=== PATIENT | male | born 1975 | race Caucasian/White ===

== ENCOUNTER 2023-10-16 11:40 | Emergency (ER) | payer MEDICARE, OTHER, SELFPAY ==
[2023-10-16 11:57] VITALS: BP 168/121
--- NOTE | 2023-10-16 12:53 | ED.GENMED ---
History of Present Illness
General
Chief Complaint: Crisis Evaluation
Source: patient
Exam Limitations: none
Time Seen by Provider: 10/16/23 11:59
Nursing documentation reviewed up to this point in time: agreed with
Travel History
Have you had any contact with someone who has COVID-19?: No
Do you have any symptoms of coronavirus? Fever > 100 degrees, chills, cough, shortness of breath, sore throat, loss of taste or smell, muscle aches, or headache?: No
History of Present Illness
History of Present Illness:
Patient with history of congestive heart failure and bipolar disorder, presents to ED for medical evaluation after 302 petition was filed by psychiatric staff. Patient states that he has not been taking his medications because '[place] has told
himself'. Denies any other complaints. Denies chest pain. Denies shortness of breath. Denies palpitations. Denies fever or chills. Denies recent illness. Denies loss of appetite, but states that he does not have enough food at home. Denies
any suicidal or homicidal ideation at this time.
Past History
Past History
ED Past Medical History: CHF, HTN, Psychiatric (OCD severe, PRSD, Anxiety, Depression, Paranoid) and Other (Recurrent right pleural effusions)
ED Past Surgical History: Tonsilectomy and Other (Thoracentesis)
Social History
Tobacco: Smoker
Alcohol: Occasional
Drug: None
Personal: Single
Living: with family
Employment: Not employed
Family History
Family History: Diabetes
Review of Systems
Review of Systems
Allergies reviewed?: Yes
All Other Systems: ROS reviewed and negative except as documented in HPI and ROS
Constitutional: Reports no symptoms
EENT: Reports no symptoms
Respiratory: Reports no symptoms
Cardiac: Reports no symptoms
ABD/GI: Reports no symptoms
Musculoskeletal: Reports no symptoms
Skin: Reports no symptoms
Neurological: Reports no symptoms
Psychiatric: Denies depression or suicidal
Phy Exam
Physical Exam
Physical Exam:
Physical Exam
General: no apparent distress, not acutely ill. afebrile
Head: nc/at. eomi
Neck: supple. normal range of motion.
Neuro: alert and oriented. no focal neurological deficits
Skin: no rash
Psychiatric: interactive and cooperative
Extremities: no edema. no calf tenderness.
Course
Orders/Labs/Results
Orders:
Orders
10/16/23 12:00
PSYCHIATRY CONSULT Urgent
Consulting Provider: Sarai Maurice
Was physician already notified: Yes
Reason for consult: behavioral change
Crisis Consult Urgent
Reason for Consult: medication noncompliance
10/16/23 13:53
Lorazepam [Ativan] 1 mg PO Q4HPRN PRN
10/16/23 14:02
Electrocardiogram (*1) Urgent
Reason for Study: QTc Monitoring
10/16/23 14:03
EKG- Treatment ONCE
10/16/23 14:19
Alcohol Urgent
Complete Blood Count/No Diff Urgent
Comprehensive Metabolic Panel Urgent
10/16/23 16:05
Urine Drug Abuse Screen Urgent
Date Specimen was Collected: 10/16/23
Time Specimen was Collected: 16:00
10/16/23 17:54
Haloperidol Lactate [Haldol] 5 mg .ROUTE .STK-MED ONE
Lorazepam [Ativan] 2 mg .ROUTE .STK-MED ONE
10/16/23 18:02
1:1 Observation - Suicide/ Violent Behavior As Directed
Restraints - Violent As Directed
Restraint Type-: Locked-4 point/4 rails
Apply From (date): 10/16/23
Apply from (time): 18:02
Remove (date): 10/16/23
Remove (time): 22:02
10/16/23 18:06
Haloperidol Lactate [Haldol] 5 mg IM NOW STA
Lorazepam [Ativan] 2 mg IM NOW STA
10/16/23 19:10
COVID-19 Antigen Urgent
Source: Nasal Swab
10/17/23 10:30
Empagliflozin [Jardiance] 10 mg PO DAILY
10/17/23 11:00
Aspirin Chewable [Low Strength Aspirin] 81 mg PO DAILY
Carvedilol [Coreg] 25 mg PO BID
Furosemide [Lasix] 40 mg PO DAILY
10/17/23 13:18
Haloperidol Lactate [Haldol] 2 mg IM NOW STA
Lorazepam [Ativan] 1 mg IM NOW STA
Abnormal Lab Results
10/16/23
14:19
RBC 4.67 L 10^6/uL
(4.70-6.10)
MCH 31.7 H pg
(27.0-31.0)
BUN 7 L mg/dl
(9-20)
Creatinine 0.6 L mg/dL
(0.7-1.3)
Glucose 118 H mg/dl
(70-99)
10/16/23 14:19
10/16/23 14:19
Vital Signs
Initial and Last Documented VS:
Initial Vital Signs
Temp Pulse Resp BP Pulse Ox
98.1 F 117 16 168/121 96
10/16/23 11:57 10/16/23 11:57 10/16/23 11:57 10/16/23 11:57 10/16/23 11:57
Last Documented Vital Signs
Temp Pulse Resp BP Pulse Ox
98.1 F 101 16 159/109 99
10/16/23 11:57 10/17/23 05:29 10/17/23 05:29 10/17/23 05:29 10/17/23 05:29
MDM/Problems Addressed
MDM/Problems Addressed:
Pt evaluated in ED by (psychiatry) - 302 upheld. PRN medication ordered put in by
Will check blood work/EKG
Pt medically cleared to be transitioned to in-patient psychiatric facility
*Critical Care Note
Total Time (30-74mins, 75-104mins- exclusive of procedures): Not Applicable
ED Attending Note
-
Portions of this chart may have been created with voice recognition software.� Occasional wrong word or��sound alike� substitutions may have occurred due to the inherent limitations of voice recognition software.
Discharge Plan
Departure
Patient Disposition: Psych Facility
Date of Disposition: 10/16/23
Time of Disposition: 14:04
Condition: Fair
Discharge Problem:
Bipolar disorder
Prescriptions:
No Action
aripiprazole 5 MG tablet
5 mg PO DAILY
aspirin 81 MG tablet,chewable
81 mg PO DAILY 0RF
potassium chloride 10 MEQ tablet,ER particles/crystals
10 meq PO DAILY Qty: 30 0RF
Jardiance 10 MG tablet
10 mg PO DAILY Qty: 30 0RF
clomipramine [Anafranil] 50 MG capsule
50 mg PO DAILY Qty: 0 0RF
metolazone 2.5 mg Tablet
2.5 mg PO QMWF
furosemide 40 MG tablet
80 mg PO BID AT 0800,1600
carvedilol 6.25 MG tablet
12.5 mg PO BID
lisinopril 2.5 MG tablet
5 mg PO DAILY
hydrochlorothiazide 25 mg Tablet
25 mg PO DAILY
albuterol sulfate 90 mcg/actuation Hfa Aerosol Inhaler
2 puff INHALATION Q4H PRN (Reason: SOB)
fluticasone propionate 50 mcg/actuation [place],Suspension
1 spray INTRANASAL DAILY
empagliflozin 10 mg Tablet
10 mg PO DAILY
Referrals:
UNKNOWN - PT NOT,INTERVIEWE [Family Provider] -
Interventions
Interventions:
*Risk Screen - Suicide Last Done: 10/16/23 20:44
*General Assessment Last Done: 10/16/23 11:56
*Neglect/Abuse Screening Last Done: 10/16/23 20:44
ED-Psychological Assessment Last Done: 10/16/23 12:01
Discharge Date and Time
Print Language: MONTSERRATIAN
--- NOTE | 2023-10-16 13:52 | CON.MD ---
Consultation - Medical
-
patient seen chart reviewed. patient is well known to me. he is a 48 year old male last seen by this telegraphic typewriter mechanic in jul. he has a hx of psychosis ocd anxiety and ptsd. he has been in the ACT program at [facility]. a 302 petition was filed by a
clinical admin in that program mr leodan roman who alleges patient is increasingly paranoid and delusional and has been refusing his psych and cardiac medications. he has been socially inc isolative. the patient denies that he needs to be here but
does not deny that his food is contaminated and he has been told by 'government' to stop taking his cardiac medications. he told me he 'recycles' his medications properly. the patient was not an eager historian and told me several times to leave.
the aforementioned is the only information i could glean from him. current psych meds aristada last dose not known 882 mg daily risperdal 4 mg bid hydroxyzine 50 mg qid prn clomipramine 100 mg q day
past psych hx patient has been 302 committed on several occasions in the past. the last i have recorded was in july of this year and at that time he was also increasingly psychotic and refusing medications requiring hospitalization. he has
been variously cooperative in rx with ACT at [facility]
medical hx patient w hx chf w reduced EF. hx htn hld pleural effusion overweight psiriasis/eczema. his communication clerk is dr karo johnson. there is some hx qtc in the past attributed to clomipramine which was reduced. current meds from the [facility]
pharmacy record as follows jardiance 10 mg q d lasix 40 mg q d asa 81 mg q day carvedilol 25 mg bid
fh mother w depression and etoh
substance abuse the record says etoh cardiomyopathy but the patient AND his father deny any hx etoh abuse
social lives in appt supproted by his dad unable to work given psych hx on disability
mse alert but patient very uncooperative see above. he would only tell me he is not taking meds bc government told him not to and that food is contaminated insight judgment poor. paranoid. affect constricted mood is irritable and hostile
dx schizoaffective d/o ocd
plan uphole 302. speak [address] dr roe re medical medications psych hosp when medically cleared. check ecg re qtc
[2023-10-16 14:34] LABS: Hematocrit 42.8 % (39.0-52.0); Hemoglobin 14.8 g/dL (13.0-18.0); Mean Corp Hgb Conc. 34.6 g/dL (33.0-37.0); Mean Corpuscular Hgb 31.7 pg (27.0-31.0); Mean Corpuscular Volume 91.6 fL (80.0-94.0); Mean Platelet Volume 9.8 fL (7.4-10.4); Platelet Count 155 10^3/uL (130-400); Red Blood Cell Count 4.67 10^6/uL (4.70-6.10); Red Cell Dist. Width 13.3 % (11.5-14.5)
[2023-10-16 14:50] LABS: ALT (SGPT) 18 U/L (0-50); AST (SGOT) 21 U/L (17-59); Albumin 3.9 g/dl (3.5-5.0); Alkaline Phosphatase 39 U/L (38-126); Blood Urea Nitrogen 7 mg/dl (9-20); Calcium 9.5 mg/dl (8.4-10.2); Carbon Dioxide 26 mmol/L (22-30); Chloride 106 mmol/L (98-107); Glucose 118 mg/dl (70-99); Sodium 136 mmol/L (135-145); Total Bilirubin 0.6 mg/dl (0.2-1.3); Total Protein 6.4 g/dl (6.3-8.2); eGFR > 60.00
[2023-10-16 14:51] LABS: Alcohol None Detected
[2023-10-16 16:36] LABS: Amphetamines Negative (Negative); Barbiturates Negative (Negative); Benzodiazepines Negative (Negative); Buprenorphine Negative (Negative); Cocaine Negative (Negative); Marijuana Negative (Negative); Methadone Negative (Negative); Methamphetamines Negative (Negative); Opiates Negative (Negative); Phencyclidine Negative (Negative); Tricyclic Antidepressants Negative (Negative)
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
[2023-10-16] MEDS: ATIVAN 2 MG IM (18:10)
[2023-10-16] MEDS: HALDOL 5 MG IM (18:11)
--- NOTE | 2023-10-16 18:12 | EDRN ---
IM Meds given emergently. Scanned after (see MAR).
[2023-10-17 05:29] VITALS: BP 159/109
--- NOTE | 2023-10-17 09:24 | ED.CRISIS ---
ED Crisis Note
ED Crisis Note
Subjective:
Patient brought in is a 302 evaluation for paranoid and delusional behavior that has progressed. Not taking his medications. History of psychosis OCD anxiety and PTSD. Patient denies acute medical complaints at this time.
Objective:
Nontoxic no distress. Sitting in a chair.
Assessment/Plan:
Medically stable. Labs are stable. Home meds were ordered. Discussed with psychiatry.
--- NOTE | 2023-10-17 10:40 | W.PN.UPDATE ---
Update Note
Progress Note Update
patient seen chart reviewed. noted patient struggled last evening and required a prn for agitation. he received haldol. he continues today to refuse to take even his cardiac meds. i explained to him that i was not prescribing at this moment
risperdal as he has already received aristada but i could not move him. he insisted he does not need psych meds. i did ask that he take his cardiac medications and he told me to leave. i had asked the dr roe to order his cardiac meds which are
listed in my note and i also gave him a printout but i did not see them ordered and spoke with dr ordonez. noted bps are high with diastolics yesteday recorded as high as 121. the meds have now been ordered to start now and alerted pharmacist
rogers castanon . noted ecg is read as normal. qtc is normal. will pursue t [address] pulido to address medical clearance which will be required by psych facility to accept him. patient said he ate turks and caicos islander toast and bassett this am.
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
[2023-10-17 12:20] LABS: COVID-19 Antigen Negative (Negative)
--- NOTE | 2023-10-17 13:19 | ED.CRISIS ---
ED Crisis Note
ED Crisis Note
Subjective:
Patient now has become more agitated. Despite multiple attempts to calm down by the staff he remains agitated hitting the door upset. Danger to self and others.
Objective:
Agitated swinging and hitting at the door. Yelling screaming
Assessment/Plan:
Requires further sedation for his safety and safety of staff. Discussed with psychiatry. Haldol 2 mg, Ativan 1 mg IM
[2023-10-17] MEDS: ATIVAN 1 MG IM (13:50)
[2023-10-17] MEDS: HALDOL 2 MG IM (13:50)
[2023-10-17 18:29] VITALS: BP 144/102
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
[2023-10-17] MEDS: ZYPREXA 10 MG IM (21:35)
[2023-10-17] MEDS: ATIVAN 2 MG IM (21:35)
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
--- NOTE | 2023-10-18 03:17 | EDRN ---
Pt. awake, sitting in chair in room. Pt. screaming out aggressively at security, stating 'I want out of this room now! the psychiatrist is wrong, I'm not supposed to be here! why don't you guys just do your job!'. RN attempting to redirect and calm
pt., explained he is awaiting 303 hearing, pt. uninterested in listening to RN. Pt. vocalized that he is agitated, RN offered PRN medication, but pt. refused. Security remains at bedside.
[2023-10-18] MEDS: SAPHRIS 5 MG SL (03:34)
[2023-10-18 08:32] VITALS: BP 172/101
--- NOTE | 2023-10-18 10:02 | W.PN.UPDATE ---
Update Note
Progress Note Update
patient was extremely agitated this am . there were multiple incidents for no apparent reason until time came for the hearing. he refused to talk to his commercial baker helper. attempted to throw the laptop. he was verbally abusive and physically threatening. he
was refusing to take medication and insisting to leave the hospital. he has received prns over the last two days at this point he is very paranoid and delusional. have ordered zyprexa 5 mg po bid with im for refusal. have been unable at this
point to find a psych bed for him. blood pressures are climbing as he refuses to take bp meds. need to try to get him more stable psychiatrically for medical reasons as well. have chosen zyprexa bc concern w parenteral haldol re qtc prolongation
risk which he has had in the past.
[2023-10-18] MEDS: ZYPREXA 5 MG IM ×2 (12:46→20:08)
--- NOTE | 2023-10-18 14:43 | ED.CRISIS ---
ED Crisis Note
ED Crisis Note
Subjective:
48-year-old male, bipolar awaiting psychiatric placement now acting aggressive.
Objective:
Agitated 48-year-old male banging on door, acting aggressive.
Assessment/Plan:
IM Ativan ordered, will continue to assess.
[2023-10-18] MEDS: ATIVAN 2 MG IV (14:53)
--- NOTE | 2023-10-18 20:19 | ED.CRISIS ---
ED Crisis Note
ED Crisis Note
Subjective:
Patient apparently has become more combative.
Objective:
Agitated combative. Danger to self and others
Assessment/Plan:
Warrants restraints
[2023-10-18 20:26] VITALS: BP 160/110
[2023-10-19] MEDS: ZYPREXA 5 MG IM ×2 (03:29→19:09)
[2023-10-19] MEDS: STERILE WATER FOR INJECTION 2.10000000000000009 ML IM (03:30)
[2023-10-19] MEDS: KETAMINE HCL 400 MG IM (04:29)
--- NOTE | 2023-10-19 04:56 | ED.CRISIS ---
ED Crisis Note
ED Crisis Note
Subjective:
48-year-old male here on involuntary commitment as documented extensively above. He is being followed by psychiatry. He is currently very agitated and delusional yelling and screaming at the top of his lungs and threatening. He refuses to go into
his room and is banging on the door to exit our psychiatric area. He is not responding to verbal redirection.
Objective:
Patient pacing about outside of his room yelling and screaming cursing at staff.
Assessment/Plan:
Patient acutely psychotic, agitated and threatening and his behavior is escalating. He was treated with a as needed dose of Zyprexa without any improvement. For this reason decision made to proceed with sedation with ketamine. After receiving IM
ketamine unfortunately patient fell out of bed and hit his head and nose on the floor. He had some epistaxis which stopped with some mild direct pressure. Will send for a CT head, cervical spine and facial bones.
[2023-10-19 05:04] VITALS: BP 174/101
[2023-10-19 06:10] VITALS: BMI 30.1
--- NOTE | 2023-10-19 06:12 | ED.CRISIS ---
ED Crisis Note
ED Crisis Note
Subjective:
Patient suffered a fall after sedation for acute psychosis and agitation, aggressive behavior. He was in CT head, cervical spine, facial bones.
Objective:
Patient resting comfortably. Some ecchymosis over the nose but no epistaxis at present. Dried blood around the nares. No septal hematoma.
Assessment/Plan:
Reviewed imaging: CT head and cervical spine negative. CT of the facial bones does acute anterior nasal bone and osseous nasal septal fractures. No acute intervention for now, will ultimately need outpatient ENT follow-up.
[2023-10-19 06:16] VITALS: BP 158/103
[2023-10-19 08:30] VITALS: BP 176/98
[2023-10-19] MEDS: HALDOL 5 MG IM (13:40)
[2023-10-19] MEDS: BENADRYL 25 MG IM (13:40)
--- NOTE | 2023-10-19 13:44 | W.PN.UPDATE ---
Update Note
Progress Note Update
Patient is very agitated, screaming 'Fk you ' and pacing, seems threatening. Also refusing frequently to take his medications so it is unclear if Zyprexa would help.
303 hearing to be held on Saturday, 10/20.
Continue current medications for now.
--- NOTE | 2023-10-20 10:17 | W.PN.UPDATE ---
Update Note
Progress Note Update
reviewed chart. Pt on 303 commitment.
Attempted to talk to patient today- he was lying in bed in the room. He refused to speak to me, denied being in any physical pain. Although he did not become abusive verbally or physically he demanded that I leave the room and refused to speak with
me.
Acc to medication records it appears he did get Zyprexa IM yesterday.
Waiting for transfer to psychiatric unit. Will continue to attempt to get patient to take antipsychotics, though his paranoia at this point is acute.
CT head revealed no abnormalities. Present condition results from his underlying psychotic disorder and noncompliance with treatment.
We will continue to follow patient.
[2023-10-20 13:34] VITALS: BP 167/107
[2023-10-20] MEDS: STERILE WATER FOR INJECTION 2.10000000000000009 ML IM ×2 (15:05→18:36)
[2023-10-20] MEDS: ZYPREXA 5 MG IM ×2 (15:06→18:36)
[2023-10-20] MEDS: ATIVAN 2 MG IM (18:36)
[2023-10-20 22:53] VITALS: BP 148/93
[2023-10-21 09:29] VITALS: BP 168/115
--- NOTE | 2023-10-21 11:39 | ED.CRISIS ---
ED Crisis Note
ED Crisis Note
Subjective:
Pt does not offer any info upon questioning
Objective:
Pt with intermittent verbal outbursts, but able to be re-directed.
Remains mildly hypertensive, but refusing medications.
Assessment/Plan:
Awaiting 303 hearing tomorrow, per crisis team.
--- NOTE | 2023-10-21 13:19 | W.PN.UPDATE ---
Update Note
Progress Note Update
Pt seen, reviewed /303 petition. 303 hearing continued until tomorrow due to pt uncooperative. Pt noted to be agitated, aggressive, threatening/screaming. Pt was given multiple medications- Zyprexa 5 mg IM BID, prn dose of Haldol, Saphris, and
ultimately Ketamine 400 mg IM on 10/18 at 4 am. Pt subsequently fell and injured his face, was medically cleared. Pt continues refusing to take all heart/ blood pressure/diabetes meds. Pt is followed by [facility], noted to be on
long-acting injection of Aristada (Aripiprazole) monthly, risperidone 4 mg BID, Clomipramine for OCD symptoms. Today, pt refusing to talk or answer any questions, insisting he is supposed to be released/discharged. Affect is dysphoric and
irritable, tense/edgy, preoccupied. Pt noted to be mildly hypertensive per ED physician.
Imp: Schizoaffective d/o, bipolar type, mixed episode. on 302 due to inability to care for self; 303 hearing tomorrow. Further agitation/aggression noted since admission in the ED; pt continues to refuse his medical medications
Rec: continue current antipsychotic/mood stabilizing med- IM Zyprexa for now; continue to offer po
303 hearing tomorrow, with petition for inpatient psych tx
Will follow
--- NOTE | 2023-10-22 08:47 | ED.CRISIS ---
ED Crisis Note
ED Crisis Note
Subjective:
48-year-old male here with acute psychosis, noncompliant with medications. 302/303 petition. He is pacing around continues to be screaming and threatening but currently redirectable.
Objective:
Patient around angry and aggressive but redirectable. Not in distress.
Assessment/Plan:
Patient here for psychosis, noncompliant with meds. He has IM medications ordered due to noncompliance with p.o. medications. Psychiatry following along. He is scheduled for 303 hearing around 11 AM today. Continue to monitor.
--- NOTE | 2023-10-22 13:39 | W.PN.UPDATE ---
Update Note
Progress Note Update
Pt seen, sitting on stretcher RIS, talking loudly to self, with bizarre paranoid content. 303 hearing held, pt's presence waived; pt committed to up to 20 days inpatient. Pt continues to refuse all po medications- psychiatric and medical. Pt
continues refusing to talk about his situation, insists he should be discharged. Pt very irritable, with undercurrent of anger, easily agitated.
Imp: Schizoaffective d/o, bipolar type, mixed episode, now on 303 for up to 20 days inpatient. Pt not improving; continues to refuse his medical medications
Rec: continue IM Zyprexa prn for now; continue to offer po
Referral to inpatient psych tx on 303
Will follow
[2023-10-22 19:45] VITALS: BP 151/107
[2023-10-22] MEDS: ZYPREXA 5 MG IM (21:05)
[2023-10-22] MEDS: ATIVAN 2 MG IM (21:10)
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
== END 2023-10-23 00:05 ==
LOC: EMR 11:40
PROVIDERS: CONSULT PHYSICIAN Psychiatry & Neurology Psychiatry; EMERGENCY PHYSICIAN Emergency Medicine
DX: F25.0 Schizoaffective disorder, bipolar type (principal); F17.200 Nicotine dependence, unspecified, uncomplicated; S02.2XXA Fracture of nasal bones, initial encounter for closed fracture; W06.XXXA Fall from bed, initial encounter; W22.09XA Striking against other stationary object, initial encounter; Z91.148 Patient's other noncompliance with medication regimen for other reason; I11.0 Hypertensive heart disease with heart failure; I50.9 Heart failure, unspecified
CPT/HCPCS: 99285; 96372 ×5; 70450; 70486; 72125; 80053; 80306; 82077; 85027; 87811; 93005; J2358

== ENCOUNTER 2023-12-30 13:44 | Emergency (ER) | payer MEDICARE, OTHER, SELFPAY ==
[2023-12-30 13:58] VITALS: BP 124/91
[2023-12-30 14:15] LABS: % Basophils 0.8 % (0-2); % Eosinophils 1.2 % (0-6); % Immature Granulocytes 0.3 % (0-0.5); % Lymphocytes 28.1 % (20.5-51.1); % Monocytes 10.1 % (1.7-9.3); % Neutrophils 59.5 % (42.2-75.2); Absolute Basophils 0.1 10^3/uL (0-0.2); Absolute Eosinophils 0.1 10^3/uL (0-0.7); Absolute Lymphocytes 2.2 10^3/uL (1.2-3.4); Absolute Monocytes 0.8 10^3/uL (0.1-0.6); Absolute Neutrophils 4.6 10^3/uL (1.4-6.5); Hematocrit 54.1 % (39.0-52.0); Hemoglobin 19.7 g/dL (13.0-18.0); Mean Corp Hgb Conc. 36.4 g/dL (33.0-37.0); Mean Corpuscular Hgb 31.1 pg (27.0-31.0); Mean Corpuscular Volume 85.3 fL (80.0-94.0); Mean Platelet Volume 9.7 fL (7.4-10.4); Nucleated Red Blood Cells % 0 % (-); Platelet Count 180 10^3/uL (130-400); Red Blood Cell Count 6.34 10^6/uL (4.70-6.10); Red Cell Dist. Width 12.5 % (11.5-14.5); White Blood Cell Count 7.8 10^3/uL (4.8-10.8)
[2023-12-30 14:33] LABS: Blood Urea Nitrogen 41 mg/dl (9-20); Calcium 9.9 mg/dl (8.4-10.2); Carbon Dioxide 27 mmol/L (22-30); Chloride 82 mmol/L (98-107); Glucose 136 mg/dl (70-99); Potassium 3.1 mmol/L (3.5-5.1); Sodium 128 mmol/L (135-145); eGFR > 60.00
[2023-12-30 14:40] LABS: Alcohol None Detected
--- NOTE | 2023-12-30 15:05 | W.PN.UPDATE ---
Update Note
Progress Note Update
Pt is 48 yo male brought in on 302 by [facility] ACT team, due to not taking medications, decreasing self-care, not eating, worsening psychosis. Pt seen, sitting on edge of stretcher, downcast, not answering any questions, internally
preoccupied/disorganized. Security staff reports pt has been repeating 'I can't do anything', not cooperating with changing into scrubs. Reviewed [facility] medications; pt noted missing the last 2 Invega Sustenna injections, is also on Risperidone. Pt
also reportedly not taking heart medications- Carvedilol, Lasix, HCTZ. Pt also on Jardiance. Reviewed labs- sodium and potassium are low.
Imp: Schizoaffective d/o, bipolar type by history, with acute exacerbation of psychosis
Rec: 302 upheld. Will pursue inpatient psych placement pending medical clearance
Continue Risperidone. Will follow
[2023-12-30] MEDS: KCL ELIXIR 40 MEQ PO (17:25)
--- NOTE | 2023-12-30 18:59 | ED.GENMED ---
History of Present Illness
General
Chief Complaint: Crisis Evaluation
Source: patient
Exam Limitations: none
Time Seen by Provider: 12/30/23 14:32
Nursing documentation reviewed up to this point in time: agreed with
Travel History
Have you had any contact with someone who has COVID-19?: No
Do you have any symptoms of coronavirus? Fever > 100 degrees, chills, cough, shortness of breath, sore throat, loss of taste or smell, muscle aches, or headache?: No
History of Present Illness
History of Present Illness:
Patient with history of bipolar disorder and depression, presents to ED for medical evaluation after 302 petition was filed by his therapist, as patient has stopped eating and taking his medications. Upon arrival, patient is alert and awake and
offers no complaints. Denies recent illness. Denies headache. Denies chest pain. Denies coughing. Denies vomiting. Denies diarrhea. Patient does not offer any explanation, as far as why he is not taking his medications. Patient states that
'you already know why'.
Past History
Past History
ED Past Medical History: CHF, HTN, Psychiatric (OCD severe, PRSD, Anxiety, Depression, Paranoid) and Other (Recurrent right pleural effusions)
ED Past Surgical History: Tonsilectomy and Other (Thoracentesis)
Social History
Tobacco: Smoker
Alcohol: Occasional
Drug: None
Personal: Single
Living: with family
Employment: Not employed
Family History
Family History: Diabetes
Review of Systems
Review of Systems
Allergies reviewed?: Yes
All Other Systems: ROS reviewed and negative except as documented in HPI and ROS
Constitutional: Reports no symptoms
Respiratory: Reports no symptoms
ABD/GI: Reports no symptoms
Skin: Reports no symptoms
Neurological: Reports no symptoms
Phy Exam
Physical Exam
Physical Exam:
Physical Exam
General: no apparent distress, not acutely ill. afebrile.
Head: nc/at. eomi
Neck: supple. no meningeal signs.
Heart: s1/s2 regular rate and rhythm, no murmur. equal radial pulses.
Lungs: no acute respiratory distress. clear bilaterally
Abdomen: normal bowel sounds. not tender.
Neuro: alert and oriented. no focal neurological deficits
Skin: no rash
Psychiatric: calm
Extremities: no edema.
Course
Orders/Labs/Results
Orders:
Orders
12/30/23 14:05
Alcohol Urgent
Basic Metabolic Panel Urgent
Complete Blood Count/With Diff Urgent
12/30/23 15:16
Crisis Consult Urgent
Reason for Consult: psychosis
12/30/23 17:01
Potassium Chloride 10% Elixir [KCl Elixir] 40 meq PO NOW STA
12/30/23 20:00
Lorazepam [Ativan] 0.5 mg PO BID
Risperidone [Risperdal] 2 mg PO BID
12/30/23 21:21
Urine Drug Abuse Screen Urgent
Date Specimen was Collected: 12/30/23
Time Specimen was Collected: 14:04
Abnormal Lab Results
12/30/23
14:05
RBC 6.34 H 10^6/uL
(4.70-6.10)
Hgb 19.7 H g/dL
(13.0-18.0)
Hct 54.1 H %
(39.0-52.0)
MCH 31.1 H pg
(27.0-31.0)
Absolute Monos (auto) 0.8 H 10^3/uL
(0.1-0.6)
Monocytes % 10.1 H %
(1.7-9.3)
Sodium 128 L mmol/L
(135-145)
Potassium 3.1 L mmol/L
(3.5-5.1)
Chloride 82 L mmol/L
(98-107)
BUN 41 H mg/dl
(9-20)
Glucose 136 H mg/dl
(70-99)
12/30/23 14:05
12/30/23 14:05
Vital Signs
Initial and Last Documented VS:
Initial Vital Signs
Temp Pulse Resp BP Pulse Ox
98.4 F 87 18 124/91 98
12/30/23 13:58 12/30/23 13:58 12/30/23 13:58 12/30/23 13:58 12/30/23 13:58
Last Documented Vital Signs
Temp Pulse Resp BP Pulse Ox
98.0 F 78 18 119/75 98
12/31/23 18:34 12/31/23 18:34 12/31/23 18:34 12/31/23 18:34 12/31/23 18:34
MDM/Problems Addressed
MDM/Problems Addressed:
Patient evaluated in emergency department by Dr. Duran, psychiatry. 302 petition upheld.
Hyponatremia, hypokalemia, and elevated BUN to creatinine ratio noted, consistent with likely poor oral intake/dehydration. Offered IV placement for hydration, which patient refused.
However, patient is able to have full meal in ED and drinking water and soda voluntarily. Patient also has taken KCl elixir on his own. As such, I do not feel that patient needs any acute IV treatment at this time. Patient will be medically
cleared and transition to inpatient psychiatric facility for further eval and treatment.
*Critical Care Note
Total Time (30-74mins, 75-104mins- exclusive of procedures): Not Applicable
ED Attending Note
-
Portions of this chart may have been created with voice recognition software.� Occasional wrong word or��sound alike� substitutions may have occurred due to the inherent limitations of voice recognition software.
Discharge Plan
Departure
Patient Disposition: Psych Facility
Date of Disposition: 12/30/23
Time of Disposition: 19:54
Patient Status:: 302
Discharge Problem:
Bipolar disorder, Schizoaffective disorder
Prescriptions:
No Action
aripiprazole 5 MG tablet
5 mg PO DAILY
aspirin 81 MG tablet,chewable
81 mg PO DAILY 0RF
potassium chloride 10 MEQ tablet,ER particles/crystals
10 meq PO DAILY Qty: 30 0RF
Jardiance 10 MG tablet
10 mg PO DAILY Qty: 30 0RF
clomipramine [Anafranil] 50 MG capsule
50 mg PO DAILY Qty: 0 0RF
metolazone 2.5 mg Tablet
2.5 mg PO QMWF
furosemide 40 MG tablet
80 mg PO BID AT 0800,1600
carvedilol 6.25 MG tablet
12.5 mg PO BID
lisinopril 2.5 MG tablet
5 mg PO DAILY
hydrochlorothiazide 25 mg Tablet
25 mg PO DAILY
albuterol sulfate 90 mcg/actuation Hfa Aerosol Inhaler
2 puff INHALATION Q4H PRN (Reason: SOB)
fluticasone propionate 50 mcg/actuation [place],Suspension
1 spray INTRANASAL DAILY
empagliflozin 10 mg Tablet
10 mg PO DAILY
Referrals:
UNKNOWN - PT NOT,INTERVIEWE [Family Provider] -
Interventions
Interventions:
*Risk Screen - Suicide Last Done: 12/30/23 13:54
*General Assessment Last Done: 12/30/23 13:54
*Neglect/Abuse Screening Last Done: 12/30/23 13:54
ED- Fall Risk Assessment Last Done: 12/30/23 16:23
*ED COVID-19 Vaccine History Last Done: 12/30/23 13:54
*Nursing Disposition Last Done: 12/31/23 19:13
ED-Psychological Assessment Last Done: 12/31/23 08:24
Discharge Date and Time
Discharge Date/Time: 12/31/23 19:13
Print Language: CITIZEN OF [place]
[2023-12-30] MEDS: ATIVAN 0.5 MG PO (19:40)
[2023-12-30] MEDS: RISPERDAL 2 MG PO (19:40)
[2023-12-30 21:49] LABS: Amphetamines Negative (Negative); Barbiturates Negative (Negative); Benzodiazepines Negative (Negative); Buprenorphine Negative (Negative); Cocaine Negative (Negative); Marijuana Negative (Negative); Methadone Negative (Negative); Methamphetamines Negative (Negative); Opiates Negative (Negative); Phencyclidine Negative (Negative); Tricyclic Antidepressants Negative (Negative)
[2023-12-30 23:10] VITALS: BP 100/71
[2023-12-31 08:22] VITALS: BMI 23.8
[2023-12-31] MEDS: ATIVAN PO (08:25)
[2023-12-31] MEDS: RISPERDAL PO (08:25)
[2023-12-31 09:17] VITALS: BP 103/74
--- NOTE | 2023-12-31 14:17 | W.PN.UPDATE ---
Update Note
Progress Note Update
Pt seen, condition unchanged, remains on 302 for inability to care for self. Pt refused Risperidone and Ativan last night, but took them this morning. Pt lying on stretcher, socially withdrawn.
Imp: Schizoaffective d/o, bipolar type by history, with acute exacerbation of psychosis
Rec: Continue to pursue inpatient psych placement on 302
Continue Risperidone, Ativan. Will follow
[2023-12-31 18:34] VITALS: BP 119/75
== END 2023-12-31 19:13 ==
LOC: EMR 13:44
PROVIDERS: EMERGENCY PHYSICIAN Emergency Medicine; OTHER PHYSICIAN Psychiatry & Neurology Psychiatry
DX: Z02.79 Encounter for issue of other medical certificate (principal); F25.0 Schizoaffective disorder, bipolar type; F31.9 Bipolar disorder, unspecified; Z91.148 Patient's other noncompliance with medication regimen for other reason; F23 Brief psychotic disorder; I11.0 Hypertensive heart disease with heart failure; I50.9 Heart failure, unspecified; F42.9 Obsessive-compulsive disorder, unspecified; F41.9 Anxiety disorder, unspecified; F32.A Depression, unspecified; F60.0 Paranoid personality disorder; F17.200 Nicotine dependence, unspecified, uncomplicated; Z87.01 Personal history of pneumonia (recurrent); Z91.51 Personal history of suicidal behavior
CPT/HCPCS: 99285; 80048; 80306; 82077; 85025

== ENCOUNTER 2024-04-28 19:06 | Emergency (ER) | payer MEDICARE, OTHER, SELFPAY ==
--- NOTE | 2024-04-28 20:23 | ED.GENMED ---
History of Present Illness
General
Chief Complaint: Psychiatric Problem
Source: other (Report from the [facility])
Exam Limitations: other (Uncooperative)
Time Seen by Provider: 04/28/24 19:45
History of Present Illness
History of Present Illness:
Patient is patient by [facility] for inability to care for self. Unsure how this progressed at this time. Patient will not answer questions will offer assistance or help. Patient does have a history of bipolar disease.
Past History
Past History
ED Past Medical History: CHF, HTN, Psychiatric (OCD severe, PRSD, Anxiety, Depression, Paranoid) and Other (Recurrent right pleural effusions)
ED Past Surgical History: Tonsilectomy and Other (Thoracentesis)
Social History
Tobacco: Smoker
Alcohol: Occasional
Drug: None
Personal: Single
Living: with family
Employment: Not employed
Family History
Family History: Diabetes
Review of Systems
Review of Systems
All Other Systems: Not applicable
Phy Exam
Physical Exam
Physical Exam:
GENERAL: Alert. Will talk mildly and answer some [place]. However not cooperative.. No signs of trauma
EYE: Orbits normal.
NECK: Supple
CARDIAC: Regular rate and rhythm without any obvious murmurs.
LUNGS: Clear breath sounds,normal
ABDOMEN: Soft, without focal tenderness or distention
NEUROLOGICAL: Alert. Grossly nonfocal
SKIN: Warm and dry, no rash or lesion, no discoloration, skin intact.
MUSCULOSKELETAL: No edema,no deformity.Good color
PSYCH: Poor eye contact. When cooperatate
Course
Orders/Labs/Results
Orders:
Orders
04/28/24 20:49
Urine Drug Abuse Screen Urgent
04/28/24 23:15
Alcohol Urgent
Basic Metabolic Panel Urgent
Complete Blood Count/With Diff Urgent
Vital Signs
Initial and Last Documented VS:
Initial Vital Signs
Temp Pulse Resp BP Pulse Ox
97.7 F 92 18 139/96 94
04/28/24 20:35 04/28/24 20:35 04/28/24 20:35 04/28/24 20:35 04/28/24 20:35
Last Documented Vital Signs
Temp Pulse Resp BP Pulse Ox
97.7 F 92 18 139/96 94
04/28/24 20:35 04/28/24 20:35 04/28/24 20:35 04/28/24 20:35 04/28/24 20:35
MDM/Problems Addressed
Differential Diagnosis Includes:
Clinically patient appears stable at this time. Patient is not cooperative however has not done anything immediately dangerous to himself requiring significant sedation. He did not take his sweats or T-shirt off but I carefully examined him and
did not find any concerning material on his body.
*Critical Care Note
Total Time (30-74mins, 75-104mins- exclusive of procedures): Not Applicable
Data Reviewed
Review of Other/Old Records Reveals: Labs and Records
Update Note
Update Note:
Patient accepted. 302 upheld. Medically stable
ED Attending Note
-
Portions of this chart may have been created with voice recognition software.� Occasional wrong word or��sound alike� substitutions may have occurred due to the inherent limitations of voice recognition software.
Discharge Plan
Departure
Patient Disposition: Psych Facility
Date of Disposition: 04/29/24
Time of Disposition: 01:48
Discharge Problem:
Psychiatric committal, Unable to care for self
Prescriptions:
No Action
aripiprazole 5 MG tablet
5 mg PO DAILY
aspirin 81 MG tablet,chewable
81 mg PO DAILY 0RF
potassium chloride 10 MEQ tablet,ER particles/crystals
10 meq PO DAILY Qty: 30 0RF
Jardiance 10 MG tablet
10 mg PO DAILY Qty: 30 0RF
clomipramine [Anafranil] 50 MG capsule
50 mg PO DAILY Qty: 0 0RF
metolazone 2.5 mg Tablet
2.5 mg PO QMWF
furosemide 40 MG tablet
80 mg PO BID AT 0800,1600
carvedilol 6.25 MG tablet
12.5 mg PO BID
lisinopril 2.5 MG tablet
5 mg PO DAILY
hydrochlorothiazide 25 mg Tablet
25 mg PO DAILY
albuterol sulfate 90 mcg/actuation Hfa Aerosol Inhaler
2 puff INHALATION Q4H PRN (Reason: SOB)
fluticasone propionate 50 mcg/actuation [place],Suspension
1 spray INTRANASAL DAILY
empagliflozin 10 mg Tablet
10 mg PO DAILY
Referrals:
Shane Ortiz MD [Family Provider] -
Interventions
Interventions:
*General Assessment Last Done: 04/28/24 19:08
ED-Psychological Assessment Last Done: 04/28/24 21:43
Discharge Date and Time
Print Language: YAK[place]
[2024-04-28 20:35] VITALS: BP 139/96
== END 2024-04-29 09:48 ==
LOC: EMR 19:06
PROVIDERS: EMERGENCY PHYSICIAN Emergency Medicine; FAMILY PHYSICIAN Family Medicine
DX: Z13.30 Encounter for screening examination for mental health and behavioral disorders, unspecified (principal); Z74.1 Need for assistance with personal care; F31.9 Bipolar disorder, unspecified; I11.0 Hypertensive heart disease with heart failure; I50.9 Heart failure, unspecified; F42.9 Obsessive-compulsive disorder, unspecified; F41.9 Anxiety disorder, unspecified; F17.200 Nicotine dependence, unspecified, uncomplicated; Z83.3 Family history of diabetes mellitus
CPT/HCPCS: 99285